=== PATIENT | male | born 1955 | race Caucasian/White ===

== ENCOUNTER → 2017-07-03 | Outpatient (CLI) | payer BC | END | disposition home or self-care (01) | LOC: SUSANVILLE 10:00 | PROVIDERS: ATTEND Internal Medicine Cardiovascular Disease | DX: I77.819 Aortic ectasia, unspecified site (principal); I51.7 Cardiomegaly; Z95.2 Presence of prosthetic heart valve | CPT/HCPCS: 93306 ==

== ENCOUNTER → 2018-07-15 | Outpatient (CLI) | payer BC | END | disposition home or self-care (01) | LOC: SUSANVILLE 08:00 | PROVIDERS: ATTEND Internal Medicine Cardiovascular Disease | DX: I51.7 Cardiomegaly (principal) | CPT/HCPCS: 93306 ==